=== PATIENT | female | born 1980 | race Two or more races ===

== ENCOUNTER 2019-12-19 19:59 | Emergency (ER) | payer OTHER, SELFPAY ==
[2019-12-19 20:32] VITALS: BP 112/70; PULSE 96; RESP 26; TEMP 37.1; O2SAT 100; BMI 31.8
--- NOTE | 2019-12-19 21:33 | ED.ANXIETY ---
HPI - Anxiety General Chief Complaint: Anxiety Stated Complaint: ANXIETY ATTACK Time Seen by Provider: 12/19/19 21:33 History of Present Illness HPI narrative: this is a 39-year-old female with significant past medical history for asthma and anxiety and states that she took her Ativan prior to going to work, however once she arrived to work they were out of the soft and 95 since she was required to wear the hard mask which caused her to become very anxious and then developed a full-blown panic attack . Patient states that she is feeling better now but still a little anxious and jittery. She denies any dyspnea, chest pain / palpitations and states that her asthma is well under control although she does endorse that she had to use 2 puffs earlier because of the anxiety which resulted in her feeling very short of breath. In addition, patient denies any fevers, chills, urinary symptoms or GI symptoms. Related Data Allergies Allergy/AdvReac Type Severity Reaction Status Date / Time diphenhydramine Allergy Unknown DIFFICULTY Verified 12/19/19 20:32 [From BENADRYL] SWALLOWING Seafood Allergy Severe DIFFICULTY Uncoded 11/16/19 17:25 BREATHING Benadryl Allergy Unknown swelling Uncoded 03/10/19 00:00 seafood Allergy Unknown swelling Uncoded 03/10/19 00:00 Review of Systems Review of Systems: Pertinent positives and negatives as stated in HPI and 10 point review of systems is otherwise negative. PMFSH Past Medical History Source: nursing notes reviewed Medical History Anxiety Asthma Social History Social History Advance Directives: No Advance Directives Information Provided: No Physical Exam Vital Signs: Vital Signs: Vital Signs Temp Pulse Resp BP Pulse Ox 12/19/19 20:32 98.7 F 96 26 H 112/70 100 Body Mass Index 31.8 VITAL SIGNS: Reviewed. GENERAL: Well developed, well nourished, in no acute distress. HEAD: Normocephalic/atraumatic, EYES: PERRLA, EOMI intact without pain, no nystagmus/pallor/icterus noted EARS: Ext canals without abnormality, TMs non-bulging and non-erythematous NOSE: Nares patent bilateral OROPHARYNX: no oral lesions noted, posterior pharynx clear and non-erythematous without noted tonsillar enlargement/erythema/exudates NECK: Supple, no adenopathy LUNGS: Normal breath sounds. No adventitious sounds or accessory muscle use. SpO2<100> CARDIOVASCULAR: Regular rate and rhythm without noted murmurs, no JVD or lower extremity edema. ABDOMEN: Soft, non-tender, non-distended with bowel sounds. No rigidity. No guarding. No palpable masses or hernias noted MUSCULOSKELETAL: No tenderness, deformities, or effusions noted on gross inspection. EXTREMITIES: No cyanosis, clubbing or edema. SKIN: Inspection of the skin reveals no rashes, ulcerations, jaundice, pallor, or petechiae. NEUROLOGIC: Alert and oriented x 4. Strength and sensation to light touch were grossly intact x 4. Course Course Course Narrative: This is a 39-year-old female with history and clinical presentation consistent with acute on chronic anxiety with panic attack that has slowly begun to improve and no evidence on clinical exam of asthma exacerbation. Will provide hydroxyzine and obtaining EKG. On review patient is allergic to Benadryl so will not receive hydroxyzine and this was discussed with her at bedside. In a shared decision making discussion patient is feeling much better and agrees that she can be discharged and will pursue her medications that she has at home for her anxiety symptoms should they recur. EKG reviewed please see [facility] for further assessment. Although there is a noted QTC prolongation is very mild of 485. [facility] - Anxiety ECG Data Prior ECG tracings: available for review (03/31/2019) Interpretation: NSR, HR-78, No evidence of ischemia, WV/QRS within normal limits, QTC is mildly prolonged at 485 Discharge Plan Discharge Clinical Impression: Acute anxiety Patient Disposition: Home, Self-Care Instructions: Anxiety (ED) Additional Instructions: 1. resume all home medications as prescribed. The patient and/or family acknowledge understanding of results (as applicable), diagnosis, treatment plan, need for follow up, and symptoms that should prompt a return to the emergency room. Referrals: Juana Rees DO [Primary Care Provider] - 2 days (Discussion regarding anxiety and required mask wearing for work.)
--- NOTE | 2019-12-19 21:37 | ECG_ITS ---
Test Reason : ANXITY Blood Pressure : / mmHG Vent. Rate : 078 BPM Atrial Rate : 078 BPM P-R Int : 170 ms QRS Dur : 086 ms QT Int : 426 ms P-R-T Axes : 052 033 033 degrees QTc Int : 485 ms Normal sinus rhythm Nonspecific T wave abnormality Anterior leads Borderline ECG When compared with ECG of 31-MAR-2019 08:11, Vent. rate has decreased BY 56 BPM Nonspecific T wave abnormality no longer evident in Inferior leads Nonspecific T wave abnormality no longer evident in Lateral leads Nonspecific T wave abnormality is now Present Anterior leads Referred By: Denise Cook Electronically Signed By:CYNTHIA MONTES MD
== END 2019-12-19 22:48 | disposition home or self-care (01) ==
PROVIDERS: Emergency Provider Student in an Organized Health Care Education/Training Program; PCP Family Medicine
DX: F41.9 Anxiety disorder, unspecified (principal); J45.909 Unspecified asthma, uncomplicated; Z79.899 Other long term (current) drug therapy
CPT/HCPCS: 93005; 99283

== ENCOUNTER 2021-02-17 21:27 | Outpatient (REF) | payer OTHER, SELFPAY ==
[2021-02-17 22:05] LABS: COVID-19 Test Negative (Negative)
== END 2021-02-17 21:28 | disposition home or self-care (01) ==
LOC: HO.LAB 21:27
PROVIDERS: Visit Provider Internal Medicine
DX: Z20.822 Contact with and (suspected) exposure to COVID-19 (principal)
CPT/HCPCS: 36415; 87635

== ENCOUNTER 2023-01-18 11:25 | Outpatient (REF) | payer OTHER, SELFPAY | END 2023-01-18 11:26 | disposition home or self-care (01) | LOC: HO.MAMMO 11:25 | PROVIDERS: PCP Family Medicine; Visit Provider Family Medicine | DX: Z12.31 Encounter for screening mammogram for malignant neoplasm of breast (principal) | CPT/HCPCS: 77063; 77067 ==

== ENCOUNTER → 2023-01-18 11:30 | Outpatient (BNV) | payer OTHER, SELFPAY | PROVIDERS: PCP Family Medicine; Visit Provider Radiology Diagnostic Radiology | DX: Z12.31 Encounter for screening mammogram for malignant neoplasm of breast (principal) | CPT/HCPCS: 77063; 77067 ==